=== PATIENT | female | born 1990 | race Caucasian/White ===

== ENCOUNTER 2019-08-18 12:49 | Inpatient (IN) | payer MEDICAID, SELFPAY ==
[2019-08-18 12:57] VITALS: BP 140/106; PULSE 80; RESP 17; TEMP 36.8; O2SAT 99; BMI 28.3
--- NOTE | 2019-08-18 13:08 | W.ED.PSYCH ---
Documented by User: ALICIA Gilbert 08/18/19 15:16 HPI - Psych General: Chief Complaint: Psychiatric Symptoms Stated Complaint: mhe, si Time Seen by Provider: 08/18/19 13:05 History of Present Illness: HPI Narrative: Patient is a 28-year-old female comes to the ED with SI. Patient has a history of methamphetamine abuse. She has been sober for 3 years, but recently relapsed. Patient states she last used methamphetamines 5 days ago. After relapsing and using meth 5 days ago patient states she feels suicidal. 2 days ago patient says she took a bottle of Tylenol, several benzodiazepine tabs and several hydrocodone tabs in an attempt to end her life. Patient states she hears voices telling her to hurt herself. On the drive into the ED the voices were telling her to jump out of the car to kill herself. She is currently very anxious and stressed due to recent relapse, significant other possibly ending relationship and stress of having a child to take care of. Patient says she has been sleeping a lot lately and has not had any energy or motivation to get up and do things. She denies any abdominal pain or vomiting. Endorses constipation. Denies any dysuria, hematuria or diarrhea. Associated symptoms: Reports auditory hallucinations, depression and suicidal ideation Review of Systems Const: Denies: fever(s), chills or fatigue Eyes: Denies: change in vision or eye discomfort ENMT: Denies: throat pain, odynophagia, nasal discharge or nasal congestion Card: Denies: chest pain, palpitations, edema, swelling of feet/ankles, dyspnea on exertion or orthopnea Resp: Denies: dyspnea, productive cough or non-productive cough GI: Denies: abdominal pain, nausea, vomiting, diarrhea, constipation or hematochezia : Denies: flank pain, dysuria or hematuria Musc: Denies: neck pain, back pain or extremity swelling Skin/Breast: Denies: rash or new lesions Neuro: Denies: headache(s), numbness in extremities or weakness in extremities Psych: Reports: anxiety, depression, sleeping more, hopelessness, auditory hallucinations and suicidal ideation PFS ED PFSH: Social History Smoking and tobacco status: current every day smoker Physical Exam Const: COMMON NORMALS: patient oriented x3 and alert GENERAL APPEARANCE: cooperative and anxious HENMT: COMMON NORMALS: normocephalic HEAD & SCALP: normocephalic MOUTH: Normal oral and palatal mucosa present THROAT: posterior oropharynx normal and uvula midline Eye: COMMON NORMALS: Equal, round and reactive pupils present PUPIL: Yes Equal, round and reactive pupils present Neck/C-Spine: COMMON NORMALS: supple GENERAL: Yes normal visual inspection Resp: COMMON NORMALS: normal respiratory effort, No retractions, No use of accessory muscles and clear to auscultation bilaterally AUSCULTATION: clear to auscultation bilaterally Cardio: COMMON NORMALS: regular rate, regular rhythm, S1 normal heart sound present, S2 normal heart sound present, No gallops present (Cardio), No clicks present (Cardio), No murmurs present (Cardio) and Peripheral pulses 2+ throughout RATE: regular rate RHYTHM: regular rhythm HEART SOUNDS: S1 normal heart sound present and S2 normal heart sound present PERIPHERAL PULSES: Peripheral pulses 2+ throughout GI: COMMON NORMALS: Normal to inspection, nondistended, normoactive bowel sounds present, Soft to palpation, non-tender and no masses PALPATION: Yes Soft to palpation : COMMON NORMALS: Yes no CVA tenderness BLADDER/KIDNEY EXAM: Yes no CVA tenderness Back/Pelvis: COMMON NORMALS: no CVA tenderness Extremity: COMMON NORMALS: normal to inspection and no pedal edema Neuro: COMMON NORMALS: patient oriented x3 and moves all extremities SENSORIUM/ORIENTATION: Yes alert Psych: COMMON NORMALS: mental status grossly normal, Normal thought process present and speech normal APPEARANCE: Yes grossly normal ATTITUDE: Yes engaged ACTIVITY/MOTOR BEHAVIOR: Yes appropriate eye contact SPEECH: Yes normal speech and Yes rapid MOOD & AFFECT: Yes depressed mood and Yes anxious THOUGHT PROCESS: Normal thought process present THOUGHT CONTENT: Yes Suicidality present and Yes Hallucination(s) present auditory (Voices tell her to hurt or kill herself.) ATTENTION/CONCENTRATION: Yes attention grossly intact and Yes concentration grossly intact MEMORY/COGNITION: Yes memory grossly intact and Yes cognition grossly intact INSIGHT: Fair insight present (Psych) JUDGEMENT: Fair judgement present (Psych) Skin: COMMON NORMALS: no rashes or lesions noted GENERAL SKIN EXAM: no rashes or lesions noted and dry skin MDM - Psych MDM Narrative: Medical decision making narrative: Patient is a 28-year-old female who comes into the ED with suicidal ideation. Patient has history of methamphetamine abuse and admits she recently used meth 5 days ago. Patient voluntarily wants to be admitted no she needs help. I discussed case with Dr. Montalvo and he told me to admit patient to [facility]. Dr. Araujo handled admitting orders. Lab Data: Attestation: I reviewed the patient's lab results. Labs: Lab Results 08/18/19 08/18/19 08/18/19 Range/Units 13:25 13:25 13:41 WBC 4.4 (4.0-10.0) 10^3/ uL RBC 4.33 (4.1-5.3) 10^6/u L Hgb 13.7 (11.5-15.3) g/dL Hct 42.3 (37.0-47.0) % MCV 97.7 (81-99) fL MCH 31.6 (28.0-34.0) pg MCHC 32.4 (30.0-36.0) g/dL RDW 13.1 (12.1-15.1) % Plt Count 145 (130-400) 10^3/c mm MPV 11.8 H (7.4-10.4) fL Neut % (Auto) 64.6 % Lymph % (Auto) 28.0 % Harrison % (Auto) 6.1 % Eos % (Auto) 1.1 % Baso % (Auto) 0.2 % Neut # (Auto) 2.8 (1.8-7.7) 10^3/u L Lymph # (Auto) 1.2 (0.8-4.8) 10^3/u L Harrison # (Auto) 0.3 (0.2-0.9) 10^3/u L Eos # (Auto) 0.1 (0.0-0.8) 10^3/u L Baso # (Auto) 0.0 (0.0-0.1) 10^3/u L Nucleated RBC % (a uto) 0 % Nucleated RBCs # 0.0 /100WBC Sodium (136-145) mmol/L Potassium (3.5-5.1) mmol/L Chloride (98-107) mmol/L Carbon Dioxide (22-29) mmol/L Anion Gap (5-19) BUN (6-20) mg/dL Creatinine (0.5-0.9) mg/dL GFR Calculation (90-130) mL/min Glucose (65-115) mg/dL Calculated Osmolal ity (285-295) mOsm/k g Calcium (8.5-10.5) mg/dL Total Bilirubin (0.15-1.2) mg/dL AST (0-32) U/L ALT (0-33) U/L Alkaline Phosphata se (35-105) IU/L Total Protein (6.6-8.7) g/dL Albumin (3.5-5.2) g/dL Globulin (1.3-4.6) g/dL TSH (0.27-4.20) uIU/ mL HCG, Qual (Negative) Urine Color Yellow (Yellow) Urine Appearance Clear (CLEAR) Urine pH 8 H (5-7) Ur Specific Gravit y 1.015 (1.005-1.030) Urine Protein Neg (Negative) Urine Glucose (UA) Norm (Normal) Urine Ketones Negative (Negative) Urine Blood Neg (Negative) Urine Nitrate Negative (Negative) Urine Bilirubin Neg (NEGATIVE) Prot Sulfosalicyli c Acd Negative (Negative) Urine Urobilinogen Norm (Negative) mg/dL Ur Leukocyte Genesis ase Negative (Negative) Urine RBC None (0-2) /hpf Urine WBC 0-4 H (0-5) /hpf Ur Squamous Epith Cells 5-10 H (0-5) Ur Transition Epit h Cell None /hpf Calcium Oxalate Cr ystal None /hpf Urine Bacteria Trace (NONE) Salicylates (3-10) mg/dL Urine Opiates Scre en Negative (Negative) ng/mL Acetaminophen (10-30) ug/mL Ur Barbiturates Sc reen Negative (Negative) ng/mL Ur Phencyclidine S crn Negative (Negative) ng/mL Ur Amphetamines Sc reen Negative (Negative) ng/mL U Benzodiazepines Scrn Negative (Negative) ng/mL Urine Cocaine Scre en Negative (Negative) ng/mL U Marijuana (THC) Screen Negative (Negative) ng/mL Ethyl Alcohol (0-10) mg/dL 08/18/19 08/18/19 Range/Units 13:41 13:41 WBC (4.0-10.0) 10^3/ uL RBC (4.1-5.3) 10^6/u L Hgb (11.5-15.3) g/dL Hct (37.0-47.0) % MCV (81-99) fL MCH (28.0-34.0) pg MCHC (30.0-36.0) g/dL RDW (12.1-15.1) % Plt Count (130-400) 10^3/c mm MPV (7.4-10.4) fL Neut % (Auto) % Lymph % (Auto) % Harrison % (Auto) % Eos % (Auto) % Baso % (Auto) % Neut # (Auto) (1.8-7.7) 10^3/u L Lymph # (Auto) (0.8-4.8) 10^3/u L Harrison # (Auto) (0.2-0.9) 10^3/u L Eos # (Auto) (0.0-0.8) 10^3/u L Baso # (Auto) (0.0-0.1) 10^3/u L Nucleated RBC % (a uto) % Nucleated RBCs # /100WBC Sodium 137 (136-145) mmol/L Potassium 3.9 (3.5-5.1) mmol/L Chloride 101 (98-107) mmol/L Carbon Dioxide 25 (22-29) mmol/L Anion Gap 14.9 (5-19) BUN 7 (6-20) mg/dL Creatinine 0.6 (0.5-0.9) mg/dL GFR Calculation 119.0 (90-130) mL/min Glucose 114 (65-115) mg/dL Calculated Osmolal ity 281 L (285-295) mOsm/k g Calcium 9.3 (8.5-10.5) mg/dL Total Bilirubin 0.3 (0.15-1.2) mg/dL AST 27 (0-32) U/L ALT 19 (0-33) U/L Alkaline Phosphata se 43 (35-105) IU/L Total Protein 7.1 (6.6-8.7) g/dL Albumin 4.3 (3.5-5.2) g/dL Globulin 2.8 (1.3-4.6) g/dL TSH 1.60 (0.27-4.20) uIU/ mL HCG, Qual Negative (Negative) Urine Color (Yellow) Urine Appearance (CLEAR) Urine pH (5-7) Ur Specific Gravit y (1.005-1.030) Urine Protein (Negative) Urine Glucose (UA) (Normal) Urine Ketones (Negative) Urine Blood (Negative) Urine Nitrate (Negative) Urine Bilirubin (NEGATIVE) Prot Sulfosalicyli c Acd (Negative) Urine Urobilinogen (Negative) mg/dL Ur Leukocyte Genesis ase (Negative) Urine RBC (0-2) /hpf Urine WBC (0-5) /hpf Ur Squamous Epith Cells (0-5) Ur Transition Epit h Cell /hpf Calcium Oxalate Cr ystal /hpf Urine Bacteria (NONE) Salicylates < 0.3 L (3-10) mg/dL Urine Opiates Scre en (Negative) ng/mL Acetaminophen < 5.0 L (10-30) ug/mL Ur Barbiturates Sc reen (Negative) ng/mL Ur Phencyclidine S crn (Negative) ng/mL Ur Amphetamines Sc reen (Negative) ng/mL U Benzodiazepines Scrn (Negative) ng/mL Urine Cocaine Scre en (Negative) ng/mL U Marijuana (THC) Screen (Negative) ng/mL Ethyl Alcohol < 10 (0-10) mg/dL Discharge Plan Discharge Patient Disposition: Admitted As Inpatient Admit Provider: Derrek Montalvo Clinical Impression: Suicidal ideation Condition: Stable Referrals: Anita Wong MD [Primary Care Provider] - Discharge Date/Time: 08/18/19 15:09 Coding Level of Care Code ED Electronic Equipment Set Up Operator for Chg Fwd Exam Comprehensive Documented by User: Yudith Araujo MD 08/18/19 15:29 HPI - Psych General: Chief Complaint: Psychiatric Symptoms Stated Complaint: mhe, si Time Seen by Provider: 08/18/19 13:05 PFSH ED PFSH: Social History Smoking and tobacco status: current every day smoker MDM - Psych Lab Data: Labs: Lab Results 08/18/19 08/18/19 08/18/19 Range/Units 13:25 13:25 13:41 WBC 4.4 (4.0-10.0) 10^3/ uL RBC 4.33 (4.1-5.3) 10^6/u L Hgb 13.7 (11.5-15.3) g/dL Hct 42.3 (37.0-47.0) % MCV 97.7 (81-99) fL MCH 31.6 (28.0-34.0) pg MCHC 32.4 (30.0-36.0) g/dL RDW 13.1 (12.1-15.1) % Plt Count 145 (130-400) 10^3/c mm MPV 11.8 H (7.4-10.4) fL Neut % (Auto) 64.6 % Lymph % (Auto) 28.0 % Harrison % (Auto) 6.1 % Eos % (Auto) 1.1 % Baso % (Auto) 0.2 % Neut # (Auto) 2.8 (1.8-7.7) 10^3/u L Lymph # (Auto) 1.2 (0.8-4.8) 10^3/u L Harrison # (Auto) 0.3 (0.2-0.9) 10^3/u L Eos # (Auto) 0.1 (0.0-0.8) 10^3/u L Baso # (Auto) 0.0 (0.0-0.1) 10^3/u L Nucleated RBC % (a uto) 0 % Nucleated RBCs # 0.0 /100WBC Sodium (136-145) mmol/L Potassium (3.5-5.1) mmol/L Chloride (98-107) mmol/L Carbon Dioxide (22-29) mmol/L Anion Gap (5-19) BUN (6-20) mg/dL Creatinine (0.5-0.9) mg/dL GFR Calculation (90-130) mL/min Glucose (65-115) mg/dL Calculated Osmolal ity (285-295) mOsm/k g Calcium (8.5-10.5) mg/dL Total Bilirubin (0.15-1.2) mg/dL AST (0-32) U/L ALT (0-33) U/L Alkaline Phosphata se (35-105) IU/L Total Protein (6.6-8.7) g/dL Albumin (3.5-5.2) g/dL Globulin (1.3-4.6) g/dL TSH (0.27-4.20) uIU/ mL HCG, Qual (Negative) Urine Color Yellow (Yellow) Urine Appearance Clear (CLEAR) Urine pH 8 H (5-7) Ur Specific Gravit y 1.015 (1.005-1.030) Urine Protein Neg (Negative) Urine Glucose (UA) Norm (Normal) Urine Ketones Negative (Negative) Urine Blood Neg (Negative) Urine Nitrate Negative (Negative) Urine Bilirubin Neg (NEGATIVE) Prot Sulfosalicyli c Acd Negative (Negative) Urine Urobilinogen Norm (Negative) mg/dL Ur Leukocyte Genesis ase Negative (Negative) Urine RBC None (0-2) /hpf Urine WBC 0-4 H (0-5) /hpf Ur Squamous Epith Cells 5-10 H (0-5) Ur Transition Epit h Cell None /hpf Calcium Oxalate Cr ystal None /hpf Urine Bacteria Trace (NONE) Salicylates (3-10) mg/dL Urine Opiates Scre en Negative (Negative) ng/mL Acetaminophen (10-30) ug/mL Ur Barbiturates Sc reen Negative (Negative) ng/mL Ur Phencyclidine S crn Negative (Negative) ng/mL Ur Amphetamines Sc reen Negative (Negative) ng/mL U Benzodiazepines Scrn Negative (Negative) ng/mL Urine Cocaine Scre en Negative (Negative) ng/mL U Marijuana (THC) Screen Negative (Negative) ng/mL Ethyl Alcohol (0-10) mg/dL 08/18/19 08/18/19 Range/Units 13:41 13:41 WBC (4.0-10.0) 10^3/ uL RBC (4.1-5.3) 10^6/u L Hgb (11.5-15.3) g/dL Hct (37.0-47.0) % MCV (81-99) fL MCH (28.0-34.0) pg MCHC (30.0-36.0) g/dL RDW (12.1-15.1) % Plt Count (130-400) 10^3/c mm MPV (7.4-10.4) fL Neut % (Auto) % Lymph % (Auto) % Harrison % (Auto) % Eos % (Auto) % Baso % (Auto) % Neut # (Auto) (1.8-7.7) 10^3/u L Lymph # (Auto) (0.8-4.8) 10^3/u L Harrison # (Auto) (0.2-0.9) 10^3/u L Eos # (Auto) (0.0-0.8) 10^3/u L Baso # (Auto) (0.0-0.1) 10^3/u L Nucleated RBC % (a uto) % Nucleated RBCs # /100WBC Sodium 137 (136-145) mmol/L Potassium 3.9 (3.5-5.1) mmol/L Chloride 101 (98-107) mmol/L Carbon Dioxide 25 (22-29) mmol/L Anion Gap 14.9 (5-19) BUN 7 (6-20) mg/dL Creatinine 0.6 (0.5-0.9) mg/dL GFR Calculation 119.0 (90-130) mL/min Glucose 114 (65-115) mg/dL Calculated Osmolal ity 281 L (285-295) mOsm/k g Calcium 9.3 (8.5-10.5) mg/dL Total Bilirubin 0.3 (0.15-1.2) mg/dL AST 27 (0-32) U/L ALT 19 (0-33) U/L Alkaline Phosphata se 43 (35-105) IU/L Total Protein 7.1 (6.6-8.7) g/dL Albumin 4.3 (3.5-5.2) g/dL Globulin 2.8 (1.3-4.6) g/dL TSH 1.60 (0.27-4.20) uIU/ mL HCG, Qual Negative (Negative) Urine Color (Yellow) Urine Appearance (CLEAR) Urine pH (5-7) Ur Specific Gravit y (1.005-1.030) Urine Protein (Negative) Urine Glucose (UA) (Normal) Urine Ketones (Negative) Urine Blood (Negative) Urine Nitrate (Negative) Urine Bilirubin (NEGATIVE) Prot Sulfosalicyli c Acd (Negative) Urine Urobilinogen (Negative) mg/dL Ur Leukocyte Genesis ase (Negative) Urine RBC (0-2) /hpf Urine WBC (0-5) /hpf Ur Squamous Epith Cells (0-5) Ur Transition Epit h Cell /hpf Calcium Oxalate Cr ystal /hpf Urine Bacteria (NONE) Salicylates < 0.3 L (3-10) mg/dL Urine Opiates Scre en (Negative) ng/mL Acetaminophen < 5.0 L (10-30) ug/mL Ur Barbiturates Sc reen (Negative) ng/mL Ur Phencyclidine S crn (Negative) ng/mL Ur Amphetamines Sc reen (Negative) ng/mL U Benzodiazepines Scrn (Negative) ng/mL Urine Cocaine Scre en (Negative) ng/mL U Marijuana (THC) Screen (Negative) ng/mL Ethyl Alcohol < 10 (0-10) mg/dL Discharge Plan Discharge Patient Disposition: Admitted As Inpatient Admit Provider: Derrek Montalvo Clinical Impression: Suicidal ideation Condition: Stable Referrals: Anita Wong MD [Primary Care Provider] - Discharge Date/Time: 08/18/19 15:09 Coding Level of Care Code ED Electronic Equipment Set Up Operator for Chg Fwd Exam Comprehensive
[2019-08-18 13:46] LABS: Basophils % 0.2 %; Eosinophils # 0.1 10^3/uL (0.0-0.8); Eosinophils % 1.1 %; Hematocrit 42.3 % (37.0-47.0); Hemoglobin 13.7 g/dL (11.5-15.3); Lymphocytes # 1.2 10^3/uL (0.8-4.8); Mean Corpuscular HGB Conc 32.4 g/dL (30.0-36.0); Mean Corpuscular Hemoglobin 31.6 pg (28.0-34.0); Mean Corpuscular Volume 97.7 fL (81-99); Mean Platelet Volume 11.8 fL (7.4-10.4); Monocytes # 0.3 10^3/uL (0.2-0.9); Monocytes % 6.1 %; Neutrophils # 2.8 10^3/uL (1.8-7.7); Neutrophils % 64.6 %; Nucleated Red Blood Cells % 0 %; Platelet Count 145 10^3/cmm (130-400); Red Blood Count 4.33 10^6/uL (4.1-5.3); Red Cell Distribution Width 13.1 % (12.1-15.1); White Blood Count 4.4 10^3/uL (4.0-10.0)
[2019-08-18 13:48] LABS: Urine Appearance Clear (CLEAR); Urine Color Yellow (Yellow)
[2019-08-18 13:50] LABS: Bilirubin Urine Neg (NEGATIVE); Blood Urine Neg (Negative); Glucose Urine UA Norm (Normal); Ketones Urine Negative (Negative); Leukocyte Esterase Urine Negative (Negative); Nitrate Urine Negative (Negative); Protein Urine Neg (Negative); Specific Gravity, Urine 1.015 (1.005-1.030); Sulfosalicylic Acid Urine Negative (Negative); Urobilinogen Urine Norm (Negative); pH Urine 8 (5-7)
[2019-08-18 13:52] LABS: Add Urine Culture? No; Amphetamines Screen Urine Negative (Negative); Bacteria Urine TRACE; Barbiturates Screen Urine Negative (Negative); Benzodiazepines Screen Urine Negative (Negative); Cocaine Screen Urine Negative (Negative); Opiate Screen Urine Negative (Negative); PCP Screen Urine Negative (Negative); THC Screen Urine Negative (Negative); WBC Urine 0-4 /hpf (0-5)
[2019-08-18 13:59] LABS: HCG, Serum Qual Negative (Negative)
[2019-08-18] MEDS: LORazepam 2 mg Tablet PO (14:08)
[2019-08-18 14:16] LABS: Alanine Aminotransferase 19 U/L (0-33); Albumin Level 4.3 g/dL (3.5-5.2); Alkaline Phosphatase 43 IU/L (35-105); Anion Gap 14.9 (5-19); Aspartate Amino Transferase 27 U/L (0-32); Blood Urea Nitrogen 7 mg/dL (6-20); Calcium 9.3 mg/dL (8.5-10.5); Carbon Dioxide 25 mmol/L (22-29); Chloride 101 mmol/L (98-107); Globulin 2.8 g/dL (1.3-4.6); Glucose 114 mg/dL (65-115); Osmolality Calculated 281 mOsm/kg (285-295); Potassium 3.9 mmol/L (3.5-5.1); Sodium 137 mmol/L (136-145); Total Bilirubin 0.3 mg/dL (0.15-1.2); Total Protein 7.1 g/dL (6.6-8.7)
[2019-08-18 14:28] LABS: Acetaminophen < 5.0 ug/mL (10-30); Alcohol Level < 10 mg/dL (0-10); Salicylate < 0.3 mg/dL (3-10)
[2019-08-18 15:05] VITALS: BP 113/67; PULSE 80; RESP 17; O2SAT 99
[2019-08-18 15:13] VITALS: BP 114/77; PULSE 88; RESP 18; TEMP 37.1; O2SAT 100
[2019-08-18] MEDS: nicotine 2 mg Gum BUCCAL ×2 (15:42→20:11)
[2019-08-18] MEDS: propranolol 20 mg Tablet 10 MG PO (17:10)
[2019-08-18] MEDS: buprenorphine-naloxone 4-1 mg Film 2 EACH SUBLINGUAL (17:11)
[2019-08-18 20:08] VITALS: BP 99/64; PULSE 93; RESP 16; TEMP 37; O2SAT 97
[2019-08-18] MEDS: trazodone 50 mg Tablet PO (20:11)
[2019-08-19 06:00] VITALS: BP 103/63; PULSE 65; RESP 17; TEMP 37.1; O2SAT 96
[2019-08-19] MEDS: nicotine 21 mg Patch 1 PATCH TRANSDERMA (08:01)
[2019-08-19] MEDS: buprenorphine-naloxone 4-1 mg Film 2 EACH SUBLINGUAL (08:02)
[2019-08-19] MEDS: ibuprofen 600 mg Tablet PO (08:02)
[2019-08-19] MEDS: buPROPion XL (24 HR) 150 mg Tablet PO (08:03)
[2019-08-19] MEDS: propranolol 20 mg Tablet 10 MG PO (08:03)
--- NOTE | 2019-08-19 12:08 | P.HP_ITS ---
Providers/Chief Complaint Admitting Physician: Derrek Montalvo MD Primary Care Provider: Anita Wong MD Chief Complaint: mhe, si HPI NPU History of Present Illness Chief complaint: I need my psych meds filled. History of present illness:Yuri Shearer is a 28 year old female with a history of opiate abuse, depression, and anxiety. She says that she has getting Suboxone from the [facility] in [place]. Her noctor there has been prescribing her psychiatric medications. However they are not the same ones that she previously was taking. She would like them refilled to the level that she was taking when they were working effectively at the time of her graduating from drug court in November 2018. Historically she states that she did well on Wellbutrin XL 150 mg daily, buspirone 10 mg 3 times daily, and Zoloft 50 mg daily. She graduated from drug court in November 2018. She stopped her psychiatric medications. 3 months later, problems with depression and anxiety returned. Her regular doctor in [place] agreed to restart her Wellbutrin. However she continues to have problems with depression, irritability, and anxiety. She feels that if the buspirone and Zoloft are added back, she would eventually return to her good functional state. She currently denies suicidal or homicidal ideation. She denies a presence of auditory or visual hallucinations. She denies needing to be in the hospital and in fact quite frankly states that this was the only way she had of getting back on her regular medications. She admitted that she relapsed on meth on 08/09/2019. She is greatly embarrassed and feels guilty about that. However she is intent on returning to a clean and sober state. She denied that any of those were suicide attempts. The auditory hallucinations that she reported in the emergency room, she attributes only to the methamphetamine. Laboratory Tests 08/18/19 08/18/19 13:25 13:41 Urine Opiates Screen Negative Ur Barbiturates Screen Negative Ur Phencyclidine Scrn Negative Ur Amphetamines Screen Negative U Benzodiazepines Scrn Negative Urine Cocaine Screen Negative U Marijuana (THC) Screen Negative Ethyl Alcohol < 10 Emergency room physician note: HPI Narrative: Patient is a 28-year-old female comes to the ED with SI. Patient has a history of methamphetamine abuse. She has been sober for 3 years, but recently relapsed. Patient states she last used methamphetamines 5 days ago. After relapsing and using meth 5 days ago patient states she feels suicidal. 2 days ago patient says she took a bottle of Tylenol, several benzodiazepine tabs and several hydrocodone tabs in an attempt to end her life. Patient states she hears voices telling her to hurt herself. On the drive into the ED the voices were telling her to jump out of the car to kill herself. She is currently very anxious and stressed due to recent relapse, significant other possibly ending relationship and stress of having a child to take care of. Patient says she has been sleeping a lot lately and has not had any energy or motivation to get up and do things. She denies any abdominal pain or vomiting. Endorses constipation. Denies any dysuria, hematuria or diarrhea. Mental health history: The patient has 4 prior psychiatric hospitalizations at this unit. The first was in October 2012 for 1 day, then August 31, 2016 for 4 days, November 2016 for 4 days and April 2017 for 2 days. She is not in active treatment on an outpatient basis according to current records. HEr medications at time of last hospitalization: 1. Zoloft 50 mg once daily 2. Wellbutrin XL 150 mg once daily 3. Depakote 500 mg at bedtime- drowsy 4. trazodone 50mg dose not helpful PAST FAMILY PSYCHIATRIC HISTORY: Extensive mental illness, FH suicide SOCIAL HISTORY: -Recently moved into her father's home and this has been stressful, no financial resources -Does have a young son -Legal: Patient has had multiple incarcerations though none in the past 5 years. There was 1 arrest for fourth degree assault. PAST MEDICAL HISTORY: -Hepatitis C. Denies seizures/ surgeries. Has glass bottom foot. Mental Status Exam: Appearance: hygiene is fair; no gross neurological deficits., gait is unremarkable; AIMS=0 Speech: Speech is of normal rate and rhythm and easily understood. Thought processes: Thought processes are abstract. Judgment is not adequate for safety. Associations: intact Psychotic processes: There is no indication of guarding or paranoia. There is no attention to the internal stimuli. Auditory and visual hallucinations are denied. Judgment: Insight is fair. Problem solving skills are adequate for safety. Orientation: The patient is oriented to person, place time and situation. Memory: no deficits noted in immediate, intermediate, or remote spheres. Attention: The patient is alert and interpersonally engaged. Language: Verbalizations are coherent. Fund of knowledge: Fund of knowledge is adequate. Affect/Mood: Affect is consistent with a depressed mood. ([]) suicidal ideation Affective range iappropriate. Psychosis: perception unimpaired except through cognitive distortion; reality testing intact. Diagnoses: Assessment: Treatment plan: Due to the psychiatric conditions and treatment listed in the Assessment and Plan - the patient requires continued hospitalization. Will provide a safe and therapeutic environment for patient.. Will continue inpatient treatment to allow for medication adjustment and monitoring. Will continue q15 min safety checks. Will continue current medications and monitor for medication side effects. Monitor patient's mood, sleep, appetite, and behavior closely. Encourage patient to participate in individual and group therapeutic sessions on the thacker. Estimated length of stay 5 days The expected benefits and potential side effects of patient's psychiatric medications were discussed with the patient. The patient understands and consents to treatment.CRITERIA FOR DISCHARGE: stable on medications and no longer an im Review of Systems Narrative: Review of Systems Constitutional: Complains of: Fatigue Eyes: Complains of: No eye symptoms ENT/Mouth: Complains of: No ENTM symptoms Cardiovascular: Complains of: No cardiac symptoms Respiratory: Complains of: No respiratory symptoms GI: Complains of: No GI symptoms Neuro: Complains of: No neuro symptoms Musculoskeletal: Complains of: No musculoskeletal symptoms Skin: Complains of: No skin symptoms Hematologic/Lymphatic: Complains of: No hematologic/lymphatic symptoms Endocrine: Complains of: No endocrine symptoms : Complains of: No symptoms Psych: Denied : Depression, Suicide ideation Meds NPU Home Medications Medication Instructions Recorded Confirmed Last Taken Type PNV cmb#95-ferrous fumarate-FA 1 tab PO DAILY 08/18/19 08/18/19 08/18/19 History [] buprenorphine-naloxone [Suboxone] 1 film SUBLINGUAL TID 08/18/19 08/18/19 08/17/19 History bupropion HCl 150 mg PO DAILY 08/18/19 08/18/19 Unknown History buspirone 15 mg PO TID 08/18/19 08/18/19 Unknown History melatonin 10 mg PO BEDTIME PRN 08/18/19 08/18/19 Unknown History propranolol 10 mg PO BID 08/18/19 08/18/19 Unknown History Allergies Allergy/AdvReac Type Severity Reaction Status Date / Time Opioids - Morphine Analogues Allergy Unknown Verified 08/18/19 13:03 PFSH NPU PFSH: Social History Smoking and tobacco status: current every day smoker Mental Status Exam MSE Comments: Discharge Mental Status Exam: Appearance: hygiene is good; no gross neurological deficits., gait is unremarkable; AIMS=0 Speech: Speech is of normal rate and rhythm and easily understood. Thought processes: Thought processes are abstract. Judgment is adequate for safety. Associations: intact Psychotic processes: There is no indication of guarding or paranoia. There is no attention to the internal stimuli. Auditory and visual hallucinations are denied. Judgment: Insight is fair. Problem solving skills are adequate for safety. Orientation: The patient is oriented to person, place time and situation. Memory: no deficits noted in immediate, intermediate, or remote spheres. Attention: The patient is alert and interpersonally engaged. Language: Verbalizations are coherent. Fund of knowledge: Fund of knowledge is adequate. Affect/Mood: Affect is consistent with a euthymic mood. denied suicidal ideation Affective range is appropriate. Psychosis: perception unimpaired except through cognitive distortion; reality testing intact. Vitals/I&O/Wt Last Vital Signs Temp 98.8 F 08/19/19 06:00 Pulse 65 08/19/19 06:00 Resp 17 08/19/19 06:00 BP 103/63 08/19/19 06:00 Pulse Ox 96 08/19/19 06:00 Weight last 48 hrs Weight 72.575 kg Data NPU : 08/18/19 13:41 08/18/19 13:41 A&P Additional A&P Information Diagnoses: Adjustment disorder with disturbance of mood and conduct Assessment: Patient appears to be taking of the most reasonable and direct route of reestablishing her mental health treatment without having access to outpatient services. There is no indication of imminent danger to self or others. Her request is reasonable. Plan: Restart Wellbutrin XL 150 mg daily, buspirone 10 mg 3 times daily and Zoloft 50 mg daily. 2.: Continue with individual therapy with Moira Ramirez #3: Pursue access to outpatient mental health care or at least a primary care physician who will prescribe medications in that absence. Involuntary Hold Information 96 Hour Hold: 96 Hour Involuntary Admission: No Attestations NPU Medical Necessity Statement*: Patient will be discharged today. Coding Level of Care Code Acute Information Security Analyst for Josseline Cristina
--- NOTE | 2019-08-19 12:44 | PM.NDC ---
Reason for Visit Reason for Visit: Reason For Visit: mhe, si Brief History: Chief complaint: I need my psych meds filled. History of present illness:Yuri Shearer is a 28 year old female with a history of opiate abuse, depression, and anxiety. She says that she has getting Suboxone from the [facility] in [place]. Her noctor there has been prescribing her psychiatric medications. However they are not the same ones that she previously was taking. She would like them refilled to the level that she was taking when they were working effectively at the time of her graduating from drug court in November 2018. Historically she states that she did well on Wellbutrin XL 150 mg daily, buspirone 10 mg 3 times daily, and Zoloft 50 mg daily. She graduated from drug court in November 2018. She stopped her psychiatric medications. 3 months later, problems with depression and anxiety returned. Her regular doctor in [place] agreed to restart her Wellbutrin. However she continues to have problems with depression, irritability, and anxiety. She feels that if the buspirone and Zoloft are added back, she would eventually return to her good functional state. She currently denies suicidal or homicidal ideation. She denies a presence of auditory or visual hallucinations. She denies needing to be in the hospital and in fact quite frankly states that this was the only way she had of getting back on her regular medications. She admitted that she relapsed on meth on 08/09/2019. She is greatly embarrassed and feels guilty about that. However she is intent on returning to a clean and sober state. She denied that any of those were suicide attempts. The auditory hallucinations that she reported in the emergency room, she attributes only to the methamphetamine. Laboratory Tests 08/18/19 08/18/19 13:25 13:41 Urine Opiates Screen Negative Ur Barbiturates Screen Negative Ur Phencyclidine Scrn Negative Ur Amphetamines Screen Negative U Benzodiazepines Scrn Negative Urine Cocaine Screen Negative U Marijuana (THC) Screen Negative Ethyl Alcohol < 10 Emergency room physician note: HPI Narrative: Patient is a 28-year-old female comes to the ED with SI. Patient has a history of methamphetamine abuse. She has been sober for 3 years, but recently relapsed. Patient states she last used methamphetamines 5 days ago. After relapsing and using meth 5 days ago patient states she feels suicidal. 2 days ago patient says she took a bottle of Tylenol, several benzodiazepine tabs and several hydrocodone tabs in an attempt to end her life. Patient states she hears voices telling her to hurt herself. On the drive into the ED the voices were telling her to jump out of the car to kill herself. She is currently very anxious and stressed due to recent relapse, significant other possibly ending relationship and stress of having a child to take care of. Patient says she has been sleeping a lot lately and has not had any energy or motivation to get up and do things. She denies any abdominal pain or vomiting. Endorses constipation. Denies any dysuria, hematuria or diarrhea. Mental health history: The patient has 4 prior psychiatric hospitalizations at this unit. The first was in October 2012 for 1 day, then August 31, 2016 for 4 days, November 2016 for 4 days and April 2017 for 2 days. She is not in active treatment on an outpatient basis according to current records. HEr medications at time of last hospitalization: 1. Zoloft 50 mg once daily 2. Wellbutrin XL 150 mg once daily 3. Depakote 500 mg at bedtime- drowsy 4. trazodone 50mg dose not helpful PAST FAMILY PSYCHIATRIC HISTORY: Extensive mental illness, FH suicide SOCIAL HISTORY: -Recently moved into her father's home and this has been stressful, no financial resources -Does have a young son -Legal: Patient has had multiple incarcerations though none in the past 5 years. There was 1 arrest for fourth degree assault. PAST MEDICAL HISTORY: -Hepatitis C. Denies seizures/ surgeries. Has glass bottom foot. Hospital Course Discharge Summary Patient reports that her admission was premeditated as it was the most reasonable and direct goal to reestablishing treatment that had previously been effective until November 2018. She reported that she had been using methamphetamine on a very infrequent basis prior to admission. Her urine drug screen was clean on admission. She reported that she may have been having auditory hallucinations but it was due to the methamphetamine. She was free of hallucinations and at no time did she have suicidal or homicidal ideation subsequent to do that methamphetamine use. Her primary gain was to be restarted on previously effective medications. It should be noticed that these are the same conditions under which she was hospitalized for 1 day back in 2018. Involuntary Hold Information 96 Hour Hold: 96 Hour Involuntary Admission: No Mental Status Exam MSE Comments: Discharge Mental Status Exam: Appearance: hygiene is good; no gross neurological deficits., gait is unremarkable; AIMS=0 Speech: Speech is of normal rate and rhythm and easily understood. Thought processes: Thought processes are abstract. Judgment is adequate for safety. Associations: intact Psychotic processes: There is no indication of guarding or paranoia. There is no attention to the internal stimuli. Auditory and visual hallucinations are denied. Judgment: Insight is fair. Problem solving skills are adequate for safety. Orientation: The patient is oriented to person, place time and situation. Memory: no deficits noted in immediate, intermediate, or remote spheres. Attention: The patient is alert and interpersonally engaged. Language: Verbalizations are coherent. Fund of knowledge: Fund of knowledge is adequate. Affect/Mood: Affect is consistent with a euthymic mood. denied suicidal ideation Affective range is appropriate. Psychosis: perception unimpaired except through cognitive distortion; reality testing intact. Discharge Data Data Completed and Pending: Labs from last 24 hours 08/18/19 08/18/19 08/18/19 13:41 13:41 13:41 WBC 4.4 RBC 4.33 Hgb 13.7 Hct 42.3 MCV 97.7 MCH 31.6 MCHC 32.4 RDW 13.1 Plt Count 145 MPV 11.8 H Neut % (Auto) 64.6 Lymph % (Auto) 28.0 [place] % (Auto) 6.1 Eos % (Auto) 1.1 Baso % (Auto) 0.2 Neut # (Auto) 2.8 Lymph # (Auto) 1.2 [place] # (Auto) 0.3 Eos # (Auto) 0.1 Baso # (Auto) 0.0 Nucleated RBC % (a uto) 0 Nucleated RBCs # 0.0 Sodium 137 Potassium 3.9 Chloride 101 Carbon Dioxide 25 Anion Gap 14.9 BUN 7 Creatinine 0.6 GFR Calculation 119.0 Glucose 114 Calculated Osmolal ity 281 L Calcium 9.3 Total Bilirubin 0.3 AST 27 ALT 19 Alkaline Phosphata se 43 Total Protein 7.1 Albumin 4.3 Globulin 2.8 TSH 1.60 HCG, Qual Negative Urine Color Urine Appearance Urine pH Ur Specific Gravit y Urine Protein Urine Glucose (UA) Urine Ketones Urine Blood Urine Nitrate Urine Bilirubin Prot Sulfosalicyli c Acd Urine Urobilinogen Ur Leukocyte Genesis ase Urine RBC Urine WBC Ur Squamous Epith Cells Ur Transition Epit h Cell Calcium Oxalate Cr ystal Urine Bacteria Salicylates < 0.3 L Urine Opiates Scre en Acetaminophen < 5.0 L Ur Barbiturates Sc reen Ur Phencyclidine S crn Ur Amphetamines Sc reen U Benzodiazepines Scrn Urine Cocaine Scre en U Marijuana (THC) Screen Ethyl Alcohol < 10 08/18/19 08/18/19 13:25 13:25 WBC RBC Hgb Hct MCV MCH MCHC RDW Plt Count MPV Neut % (Auto) Lymph % (Auto) [place] % (Auto) Eos % (Auto) Baso % (Auto) Neut # (Auto) Lymph # (Auto) [place] # (Auto) Eos # (Auto) Baso # (Auto) Nucleated RBC % (a uto) Nucleated RBCs # Sodium Potassium Chloride Carbon Dioxide Anion Gap BUN Creatinine GFR Calculation Glucose Calculated Osmolal ity Calcium Total Bilirubin AST ALT Alkaline Phosphata se Total Protein Albumin Globulin TSH HCG, Qual Urine Color Yellow Urine Appearance Clear Urine pH 8 H Ur Specific Gravit y 1.015 Urine Protein Neg Urine Glucose (UA) Norm Urine Ketones Negative Urine Blood Neg Urine Nitrate Negative Urine Bilirubin Neg Prot Sulfosalicyli c Acd Negative Urine Urobilinogen Norm Ur Leukocyte Genesis ase Negative Urine RBC None Urine WBC 0-4 H Ur Squamous Epith Cells 5-10 H Ur Transition Epit h Cell None Calcium Oxalate Cr ystal None Urine Bacteria Trace Salicylates Urine Opiates Scre en Negative Acetaminophen Ur Barbiturates Sc reen Negative Ur Phencyclidine S crn Negative Ur Amphetamines Sc reen Negative U Benzodiazepines Scrn Negative Urine Cocaine Scre en Negative U Marijuana (THC) Screen Negative Ethyl Alcohol Vitals: Last Vital Signs Temp 98.8 F 08/19/19 06:00 Pulse 65 08/19/19 06:00 Resp 17 08/19/19 06:00 BP 103/63 08/19/19 06:00 Pulse Ox 96 08/19/19 06:00 Discharge Plan Discharge Patient Disposition: Home, Self-Care Condition: Stable Prescriptions: New sertraline 50 mg tablet 50 mg PO DAILY Qty: 30 RF: 4 Continued propranolol 10 mg tablet 10 mg PO BID RF: 0 Suboxone 8-2 mg film 1 film sublingual TID RF: 0 28 mg iron- 800 mcg Tablet 1 tab PO DAILY RF: 0 melatonin 10 mg Tablet 10 mg PO BEDTIME PRN (Reason: Sleep) RF: 0 buspirone 15 mg tablet 15 mg PO TID Qty: 90 RF: 4 bupropion HCl 150 mg tablet extended release 24 hr 150 mg PO DAILY Qty: 30 RF: 4 Discharge Orders: Discharge Order (Routine); Ordered 08/19/19 Ordered By: Derrek Montalvo Referrals: Anita Wong MD [Primary Care Provider] - Discharge Attestations NPU Time Spent in Discharge Care*: less than 30 min Coding Level of Care Code Acute Molder Inflated Ball for Piotrg Ibeth
[2019-08-19 12:45] VITALS: BP 103/63; PULSE 65; RESP 17; TEMP 37.1; O2SAT 96
== END 2019-08-19 13:45 | disposition home or self-care (01) | DRG 880 ==
LOC: ER 14:39 → NP 14:49
PROVIDERS: Physician Assistant; Admitting Provider Psychiatry & Neurology Psychiatry; PCP Family Medicine; Visit Provider Psychiatry & Neurology Psychiatry
DX: F41.8 Other specified anxiety disorders (principal); R45.851 Suicidal ideations; Z91.5 Personal history of self-harm; B19.20 Unspecified viral hepatitis C without hepatic coma; F17.210 Nicotine dependence, cigarettes, uncomplicated; F43.24 Adjustment disorder with disturbance of conduct
CPT/HCPCS: 12345; 36415; 80053; 80306; 80307; 81001; 84443; 84703; 85025; 99284; A9270; J0573

== ENCOUNTER 2021-06-21 16:51 | Emergency (ER) | payer MEDICAID, SELFPAY ==
[2021-06-21 17:07] VITALS: BP 117/76; PULSE 94; RESP 16; TEMP 36.7; O2SAT 97; BMI 30.9
--- NOTE | 2021-06-21 17:20 | ED_ITS ---
HPI - Dental/Oral General: Chief complaint: Dental/Oral Stated complaint: Rt side tooth coming out in alot of pain Time Seen by Provider: 06/21/21 17:12 History of Present Illness: Patient is a 30-year-old female comes to the ED with dental pain. Dental pain started approximately 3 days ago. Pain is located at her top back right molar. She contacted her dentist and has an appointment set up with within the next 2 weeks. Dentist told her that she needs to be on antibiotic, so patient went to the walk-in clinic and they put her on clindamycin. She says today the pain got more severe. She rated her pain a 6 out of 10. Associated symptoms: Denies fever(s) or odynophagia Review of Systems Const: Denies: fever(s), chills or fatigue Eyes: Denies: change in vision or eye discomfort ENMT: Reports: dental pain; Denies: throat pain, odynophagia, nasal discharge or nasal congestion Card: Denies: chest pain, palpitations, edema, swelling of feet/ankles, dyspnea on exertion or orthopnea Resp: Denies: dyspnea, productive cough or non-productive cough GI: Denies: abdominal pain, nausea, vomiting, diarrhea, constipation or hematochezia : Denies: flank pain, dysuria or hematuria Musc: Denies: neck pain, back pain or extremity swelling Skin/Breast: Denies: rash or new lesions Neuro: Denies: headache(s), numbness in extremities or weakness in extremities PFSH ED PFSH: Medical History No pertinent family history Surgical History No pertinent past surgical history Social History Smoking and tobacco status: current every day smoker History of recent travel: No Current gender identity: Female Female Reproductive History: Date of last menstrual period: 05/26/19 Physical Exam Const: COMMON NORMALS: no acute distress, patient oriented x3 and alert GENERAL APPEARANCE: cooperative and comfortable HENMT: COMMON NORMALS: normocephalic HEAD & SCALP: normocephalic MOUTH: Normal oral and palatal mucosa present TEETH & GINGIVA: Yes abnormal tooth and associated gingiva upper right third molar tender, with associated gingival edema and other (extensive dental decay) and Yes poor dentition THROAT: posterior oropharynx normal and uvula midline OTHER: Poor dentition with extensive dental caries throughout. Neck/C-Spine: COMMON NORMALS: supple GENERAL: Yes normal visual inspection Resp: COMMON NORMALS: normal respiratory effort, No retractions, No use of accessory muscles and clear to auscultation bilaterally AUSCULTATION: clear to auscultation bilaterally Cardio: COMMON NORMALS: regular rate, regular rhythm, S1 normal heart sound present, S2 normal heart sound present, No gallops present (Cardio), No clicks present (Cardio), No murmurs present (Cardio) and Peripheral pulses 2+ throughout RATE: regular rate RHYTHM: regular rhythm HEART SOUNDS: S1 normal heart sound present and S2 normal heart sound present PERIPHERAL PULSES: Peripheral pulses 2+ throughout GI: COMMON NORMALS: Normal to inspection, nondistended, normoactive bowel sounds present, Soft to palpation, non-tender and no masses PALPATION: Yes Soft to palpation : COMMON NORMALS: Yes no CVA tenderness BLADDER/KIDNEY EXAM: Yes no CVA tenderness Back/Pelvis: COMMON NORMALS: no CVA tenderness Extremity: COMMON NORMALS: normal to inspection Neuro: COMMON NORMALS: patient oriented x3 and moves all extremities SENSORIUM/ORIENTATION: Yes alert Skin: GENERAL SKIN EXAM: dry skin Course Vital Signs: Vital signs: Vital Signs Temperature 98.1 F 06/21/21 17:07 Pulse Rate 94 06/21/21 17:07 Respiratory Rate 16 06/21/21 17:07 Blood Pressure 117/76 06/21/21 17:07 Pulse Oximetry 97 06/21/21 17:07 [facility] - Dental/Oral Medical Decision Making Patient is a 30-year-old female comes to the ED with dental pain. Patient saw walk-in clinic couple days ago and was put on clindamycin and has been taking it for the past 2 days. She has an appointment with her dentist within the next 2 weeks. She has poor dental health with dental caries all throughout. Right upper third molar has extensive decay with some associated gingival edema. Vitals are stable. Patient was given a dose of hydrocodone to help with pain when she is here in the ED. She was discharged home and told to continue taking her previously prescribed clindamycin. Follow-up with dentist at her next appointment for further evaluation. Return to ED precautions given. Patient understood agree with plan. Discharge Plan Discharge Patient Disposition: Home Clinical Impression: Pain due to dental caries Condition: Stable Prescriptions: No Action mupirocin 2 % ointment 1 applic TOPICAL TID Qty: 15 1RF Rx Instructions: apply and cover with warm moist compress for 15 minutes, 3 times daily propranolol 10 mg tablet 10 mg PO BID 0RF Rx Instructions: pt states she has this medication but just hasnt been taking it Suboxone 8-2 mg film 1 film sublingual TID 0RF 28 mg iron- 800 mcg Tablet 1 tab PO DAILY 0RF melatonin 10 mg Tablet 10 mg PO BEDTIME PRN (Reason: Sleep) 0RF sertraline 50 mg tablet 50 mg PO DAILY Qty: 30 4RF buspirone 15 mg tablet 15 mg PO TID Qty: 90 4RF Rx Instructions: PT STATES SHE HASNT TAKEN FOR 10 DAYS bupropion HCl 150 mg tablet extended release 24 hr 150 mg PO DAILY Qty: 30 4RF Rx Instructions: PT STATES SHE HASNT TAKEN FOR 3-4 DAYS Discharge Orders: Discharge ED (Routine); Ordered 06/21/21 Ordered By: Matt Sunshine Referrals: Anita Wong MD [Primary Care Provider] - Discharge Diet: Regular Discharge Activity: Resume usual activity Patient Instructions: Dental Caries (Cavities) Activity Restrictions/Additional Instructions: Follow-up with dentist at your next scheduled appointment to have dental pain treated. Continue taking your previously prescribed antibiotic. Take [id number] Tylenol or ibuprofen for pain. Return to the ER or your medical provider if condition worsens. Please read and understand discharge instructions. Thank you for choosing [facility] for your healthcare needs today. Please realize this is an emergency room and that we are providing you with a medical screening exam and this may not be complete and all inclusive of all the testing and or work up that you may need to determine your ailment or severity of your illness. It is very important that you follow up as instructed or that you return to the Emergency Department should you have concerns or if your condition changes or worsens in any way. Coding Level of Care Code ED Web Press Operator Assistant for Josseline Fwrosario Exam Comprehensive
[2021-06-21] MEDS: HYDROcodone-acetaminophen 7.5-325 mg Tablet 1 TAB PO (17:26)
== END 2021-06-21 17:30 | disposition home or self-care (01) ==
PROVIDERS: Emergency Provider Physician Assistant; PCP Family Medicine
DX: K02.9 Dental caries, unspecified (principal); F17.210 Nicotine dependence, cigarettes, uncomplicated
CPT/HCPCS: 99282

== ENCOUNTER → 2022-05-05 10:46 | Outpatient (BNVA) | payer OTHER, MEDICAID, SELFPAY | PROVIDERS: PCP Family Medicine; Visit Provider Registered Nurse | DX: Z79.899 Other long term (current) drug therapy (principal) | CPT/HCPCS: 85025 ==

== ENCOUNTER → 2022-07-02 15:52 | Outpatient (BNVA) | payer OTHER, SELFPAY | PROVIDERS: PCP Family Medicine; Visit Provider Registered Nurse | DX: Z79.899 Other long term (current) drug therapy (principal) | CPT/HCPCS: 80053; 80061; 82306; 82607; 83036; 84443; 85025 ==

== ENCOUNTER → 2022-10-14 13:51 | Outpatient (BNVA) | payer OTHER, MEDICAID, SELFPAY | PROVIDERS: PCP Family Medicine; Visit Provider Nurse Practitioner Family | DX: R30.0 Dysuria (principal) | CPT/HCPCS: 81000 ==

== ENCOUNTER 2022-11-11 15:19 | Outpatient (CLI) | payer MEDICAID, SELFPAY ==
[2022-11-15 23:29] LABS: Hepatitis C Genotype RNA 2
== END 2022-11-11 15:20 | disposition home or self-care (01) ==
PROVIDERS: PCP Family Medicine; Visit Provider Student in an Organized Health Care Education/Training Program
DX: K75.9 Inflammatory liver disease, unspecified (principal)
CPT/HCPCS: 36415; 87902

== ENCOUNTER 2022-11-19 06:58 | Outpatient (CLI) | payer MEDICAID, SELFPAY ==
--- NOTE | 2022-11-19 07:00 | US_ITS ---
WS: [id number] RIGHT UPPER QUADRANT ULTRASOUND HISTORY: B19.20 - Unspecified viral hepatitis C without hepatic coma COMPARISON: 11/22/2018 Liver: 16.8 cm in length. Normal size liver and echogenicity. No bile duct dilatation or mass. Portal Vein: Normal hepatopetal flow with monophasic waveform. Gallbladder: Normally distended gallbladder with no stones or wall thickening. CBD: 0.4 cm Pancreas: Normal size and echogenicity. Right kidney: 10.1 cm in length. Normal size and echogenicity. No hydronephrosis or mass. Aorta and IVC: Unremarkable abdominal aorta and IVC. No ascites. IMPRESSION: Normal RIGHT upper quadrant ultrasound.
== END 2022-11-19 06:59 | disposition home or self-care (01) ==
PROVIDERS: PCP Family Medicine; Visit Provider Student in an Organized Health Care Education/Training Program
DX: B19.20 Unspecified viral hepatitis C without hepatic coma (principal)
CPT/HCPCS: 76705

== ENCOUNTER → 2022-11-20 12:30 | Outpatient (BNVA) | payer MEDICAID, SELFPAY | PROVIDERS: PCP Family Medicine; Visit Provider Student in an Organized Health Care Education/Training Program | DX: B19.20 Unspecified viral hepatitis C without hepatic coma (principal) | CPT/HCPCS: 36415; 87522 ==